=== PATIENT | female | born 1970 | race Caucasian/White ===

== ENCOUNTER 2020-04-09 14:14 | Outpatient (CLI) | payer OTHER, SELFPAY ==
--- NOTE | ~2020-04-09 | MM_ITS ---
EXAMINATION: MM scrn kris implant BI w nesha HISTORY: Screening mammogram TECHNIQUE: Craniocaudal and mediolateral oblique 3-D tomosynthesis images with implant displacement a nd synthetic 2-D images were generated. Craniocaudal and mediolateral oblique views of the breasts wi thout implant displacement were obtained using full field digital mammography. CAD analysis was submi tted and interpreted. COMPARISON: Comparison to multiple prior studies sequentially, with oldest reviewed study dated 09/16. BREAST PARENCHYMAL COMPOSITION: There are scattered areas of fibroglandular density. FINDINGS: There are bilateral subpectoral silicone implants. There is no evidence of suspicious mass, calcification, or architectural distortion to suggest malignancy in either breast. There has been no suspicious interval change. IMPRESSION: 1. No mammographic evidence of malignancy. 2. Recommend routine screening mammography in one year. BI-RADS Category 1: Negative Reviewed, dictated and finalized at location A.
== END 2020-04-09 14:15 | disposition home or self-care (01) ==
LOC: ANHIMG 14:15
PROVIDERS: Visit Provider Obstetrics & Gynecology
DX: Z12.31 Encounter for screening mammogram for malignant neoplasm of breast (principal)
CPT/HCPCS: 77063; 77067

== ENCOUNTER 2022-01-01 10:25 | Outpatient (CLI) | payer OTHER, SELFPAY ==
--- NOTE | ~2022-01-01 | MM_ITS ---
EXAMINATION: MM scrn kris implant BI w nesha HISTORY: Screening mammogram TECHNIQUE: Craniocaudal and mediolateral oblique 3-D tomosynthesis images with implant displacement a nd synthetic 2-D images were generated. Craniocaudal and mediolateral oblique views of the breasts wi thout implant displacement were obtained using full field digital mammography. CAD analysis was submi tted and interpreted. COMPARISON: 11/08/2018 BREAST PARENCHYMAL COMPOSITION: The breasts are heterogenously dense, which may obscure small masses FINDINGS: There is a new mass in the subareolar location of the left breast. The right breast is stab le without evidence for malignancy. There are bilateral subpectoral silicone implants. IMPRESSION: 1. New left breast mass located in the subareolar location. 2. Additional mammographic views and possible breast ultrasound are recommended. BI-RADS Category 0: Incomplete: Needs additional imaging evaluation. Reviewed, dictated and finalized at location A. IMPRESSION: 1. New left breast mass located in the subareolar location. 2. Additional mammographic views and possible breast ultrasound are recommended . BI-RADS Category 0: Incomplete: Needs additional imaging evaluation.
== END 2022-01-01 10:26 | disposition home or self-care (01) ==
PROVIDERS: Visit Provider Obstetrics & Gynecology
DX: Z12.31 Encounter for screening mammogram for malignant neoplasm of breast (principal); R92.8 Other abnormal and inconclusive findings on diagnostic imaging of breast
CPT/HCPCS: 77063; 77067

== ENCOUNTER 2022-01-06 13:25 | Outpatient (CLI) | payer OTHER, SELFPAY ==
--- NOTE | ~2022-01-06 | MMUS_ITS ---
EXAMINATION: MM diag kris implant LT w nesha, US breast LT complete HISTORY: New mass reported in subareolar left breast on 01/01/2022 screening mammogram examinations TECHNIQUE: Additional 3-D tomosynthesis images of the left breast were performed and synthetic 2-D im ages were generated. CAD analysis was submitted and interpreted. High resolution complete left breast ultrasound was performed. COMPARISON: None FINDINGS: MAMMOGRAPHIC FINDINGS: Partially obscured approximately 7 mm mass is suggested in the superolateral left subareolar area.. One or more additional masses may be present but relatively obscured by heterogeneous stroma. Complet e left breast ultrasound examination was performed. ULTRASOUND: At the area of palpable left breast lump in the subareolar area at 1:00 there is a parallel circumscr ibed mildly irregular hypoechoic mass measuring approximately 8 x 12 mm. There is internal vascularit y and through transmission. No suspicious shadowing is noted. Adjacent to this is a tubular 4 x 18.8 mm sonolucency, either a cyst or dilated duct. 12:00 4 cm from nipple: Parallel circumscribed 4.6 x 6 x 7.4 mm hypoechoic solid mass without interna l vascularity, without posterior shadowing. 3:00: 2.9 x 4.9 x 7.5 and 4 x 6 x 8.6 mm parallel circumscribed hypoechoic lesions with through trans mission IMPRESSION: 1. Mildly irregular hypoechoic vascular mass at 1:00 at the area of clinical complaint of breast lump , with internal vascularity. Ultrasound-guided biopsy is recommended. 2. Additional smaller hypoechoic lesions are identified at 12:00 and 3:00; six-month follow-up left b reast ultrasound is recommended for these areas. BI-RADS Category 4: Suspicious abnormality; biopsy should be considered for 1:00 mildly irregular 8 x 12 mm solid lesion with internal vascularity On 01/06/[address] Piper left a voicemail message on Dr. Escalante's medical lab tech instructor.'S voicemail with the report findings and the recommendations for ultrasound-guided biopsy of 1:00 lesion at 6 mo nth follow-up of the remaining left breast masses. Reviewed, dictated and finalized at location A. IMPRESSION: 1. Mildly irregular hypoechoic vascular mass at 1:00 at the area of clinical co mplaint of breast lump, with internal vascularity. Ultrasound-guided biopsy is recommended. 2. Additional smaller hypoechoic lesions are identified at 12:00 and 3:00; six- month follow-up left breast ultrasound is recommended for these areas. BI-RADS Category 4: Suspicious abnormality; biopsy should be considered for 1:0 0 mildly irregular 8 x 12 mm solid lesion with internal vascularity On 01/06/[address] Piper left a voicemail message on Dr. Escalante's med ical Asst.'S voicemail with the report findings and the recommendations for ult rasound-guided biopsy of 1:00 lesion at 6 month follow-up of the remaining left breast masses. IMPRESSION: 1. Mildly irregular hypoechoic vascular mass at 1:00 at the area of clinical co mplaint of breast lump, with internal vascularity. Ultrasound-guided biopsy is recommended. 2. Additional smaller hypoechoic lesions are identified at 12:00 and 3:00; six- month follow-up left breast ultrasound is recommended for these areas. BI-RADS Category 4: Suspicious abnormality; biopsy should be considered for 1:0 0 mildly irregular 8 x 12 mm solid lesion with internal vascularity On 01/06/[address] Piper left a voicemail message on Dr. Escalante's med ical AsstKevin'S voicemail with the report findings and the recommendations for ult rasound-guided biopsy of 1:00 lesion at 6 month follow-up of the remaining left breast masses.
== END 2022-01-06 13:26 | disposition home or self-care (01) ==
PROVIDERS: Visit Provider Obstetrics & Gynecology
DX: N63.42 Unspecified lump in left breast, subareolar (principal); N63.25 Unspecified lump in the left breast, overlapping quadrants
CPT/HCPCS: 76641; 77061; 77065; G0279

== ENCOUNTER 2022-08-18 10:19 | Outpatient (CLI) | payer OTHER, SELFPAY ==
--- NOTE | 2022-08-18 11:00 | NEURO_ITS ---
Impression: # Complains of numbness and pain in right hand. # Right sensory median axonal neuropathy. # No ulnar neuropathy. # Normal needle/EMG exam. Motor Nerve Conduction Upper Extremities Median Nerve Conduction Velocity (m/sec) Terminal Latency (msec) Response Voltage(mV) Elbow-Wrist Wrist Elbow Wrist Right 55 3.8 3 6 Left 57 3.2 6 5 Ulnar Nerve Conduction Velocity (m/sec) Terminal Latency (msec) Response Voltage(mV) Above Elbow Below Elbow Wrist Above Elbow Below Elbow Wrist Right 57 2.7 5 7 Left 59 2.7 3 6 F-Wave Latency Median (ms) Ulnar (ms) Right 28.1 28.9 Left 27.3 28.4 Sensory Nerve Conduction Upper Extremities Median Nerve Stimulation Terminal Latency (msec) Wrist/Digit Response Voltage (uV) Wrist Right 4.6/4.6 37/27 Left 3.0/3.0 66/58 Ulnar Nerve Stimulation Terminal Latency (msec) Wrist/Digit Response Voltage (uV) Wrist Right 2.9 18 Left 2.7 43 Radial Nerve Terminal Latency (msec) Response Voltage(mV) Right 2.6 19 Left 2.3 11 Left Right Muscles Examined Fibrillation Fasciculation Scarcity Voltage Duration Left Right Left Right Left Right Left Right Left Right Deltoid Biceps X X Brachioradialis Triceps X X Pronator Teres X X Ext Indicis X X Ext Digitorum X X Abd Poll Brev X X 1st Dorsal Interosseus Paraspinals MTDD
== END 2022-08-18 10:20 | disposition home or self-care (01) ==
LOC: ANHNEURO 10:20
PROVIDERS: PCP Physician Assistant; Visit Provider Physician Assistant
DX: R20.0 Anesthesia of skin (principal); G62.9 Polyneuropathy, unspecified
CPT/HCPCS: 95886; 95911